=== PATIENT | female | born 1985 | race Caucasian/White ===

== ENCOUNTER 2020-09-23 20:36 | Emergency (ER) | payer OTHER ==
[~2020-09-23] VITALS: Ht 154.9 cm; Wt 65.8 kg
[2020-09-23] MEDS ORDERED: ACETAMINOPHEN ES 500 MG TABLET ONE (21:25)
[2020-09-23] MEDS: ACETAMINOPHEN 325 MG TABLET PO ONE (21:35)
[2020-09-23 22:38] VITALS: BP 112/74
--- NOTE | 2020-09-23 22:38 | NUR ---
pt cleared for dicharge per jann polanco. pt received discharge instructions. pt verbalized understanding. pt d/c in police custody. pt ambulatory with steady gait.
== END 2020-09-23 22:40 ==
LOC: ER 20:50
DX: R05 Cough (principal); Z20.822 Contact with and (suspected) exposure to COVID-19
CPT/HCPCS: 71045; 87426; 99284; C9803